=== PATIENT | female | born 1970 | race Caucasian/White ===

== ENCOUNTER → 2018-01-29 | Outpatient (CLI) | payer BC ==
[~2018-01-29] MED LIST: ACYCLOVIR 400400 MG PO; AMITRIPTYLINE H10 M3 PO; BACLOFEN 10MG T10 MG PO; CARISOPRODOL 3350 MG PO; CENTRUM SILVER1 EAC4 PO; COSENTYX (150 MG/1 M IM; FLONASE 0.05%50 MCG NASAL; LYRICA150 MG PO; MOBIC15 MG PO; OMEPRAZOLE20 M2 PO; PROMETRIUM100 MG PO; SPIRONOLACTONE100 M1 PO; STELARA45 MG/0.5 SUBQ; VITAMIN D3400 UNIT PO; ZANAFLEX2 M1 PO; ZYRTEC-D TABLE1 EAC1 PO
--- NOTE | 2018-02-05 15:18 | PAINCON ---
[address] [address] PAIN MANAGEMENT CONSULTATION Name: SU GARSIA Room: [facility] DeshpandeRadha#: [id number] Admission: 01/29/18 Attend Phys: Evie Zaragoza MD Discharge: Date of : 72 Report #: [id number] THIS REPORT FOR: //name// CC: Shane Zaragoza DATE OF SERVICE: 01/29/2018 CHIEF COMPLAINT: Sharp pain in the mid back area. HISTORY OF PRESENT ILLNESS: The patient is a 47-year-old female who has been referred to the pain clinic for evaluation of back pain. States that she started to note problems in her back in 05/2017. She exercises. She was working out in the gym. Noticed some pain and discomfort in her back, which over a period of time had continued to escalate. Denies any trauma. At this juncture, she notes that the pain continues to limit her activity. She has been told that she had some degenerative disk disease in her back. Rates her pain as 2/10 at this juncture. Has used a Medrol Dosepaks without long-term benefit. Has tried muscle relaxants. Continues to try to exercise as much as tolerated. Finds that ibuprofen and Lyrica are helpful. Has been using Soma at bedtime to help with muscle spasms and help her sleep. She feels that her work station is not helping with her pain. Has a history of cervical radicular pain and is status post cervical fusion. This in conjunction with the back pain makes her job more problematic. She feels that a standing station at work would be quite beneficial and enable her to decrease some of the pain and discomfort she is experiencing. ALLERGIES: SULFA. CURRENT MEDICATIONS: Acyclovir one tablet b.i.d., Soma 350 mg at bedtime, Zyrtec one tablet, vitamin D3 400 units, Flonase 0.05 nasal spray, multivitamins, Centrum, omeprazole 20 mg, Lyrica 150 mg t.i.d., progesterone 100 mg, Cosentyx 2 syringes intramuscular every 4 weeks, and spironolactone. PAST MEDICAL HISTORY: Rheumatic fever, anemia, hypertension, depression, migraine headaches and gastroesophageal reflux. PAST SURGICAL HISTORY: C6/C5 fusion in 2010. 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 REVIEW OF SYSTEMS: Twelve-point indicates recent weight change, chronic sinus problems, muscle cramps, back pain, nervousness, depression, slow to heal. LABORATORY DATA: MRI of the thoracic spine dated 01/20/2018: Levels, 1. T6/T7, right paracentral body osteophyte and protruded disk with effacement, [place] [address] PAIN MANAGEMENT CONSULTATION Name: SU GARSIA Room: [facility]#: [id number] Admission: 01/29/18 Attend Phys: Evie Zaragoza MD Discharge: Date of : 72 Report #: [id number] anterior thecal sac. Neural foramen are intact. Although, the protruded disk does not touch the cord, the cord appears somewhat flattened on the right at this level. 2. T7/T8 minimal bulging annulus. Neural foramen are intact cord intact. 3. T8/T9 demonstrates tiny right paracentral disk protrusion with minimal effacement of thecal sac, although the protruded disk does not touch the cord. The cord appears slightly flattened on the right. Neural foramen are intact. 4. T9/T10 demonstrates mild bulging annulus and tiny protruded disk, left of midline. Mild encroachment thecal sac noted. Minimal if any neural foraminal encroachment seen. IMPRESSION: Multilevel tiny protruded disk with effacement of the thecal sac. At these levels, there is suggestion that the cord is slightly flattened, however, no abutment of the cord noted. Alignment is unremarkable. No compression fractures seen. PAIN CLINIC ASSESSMENT: 1. History of osteoarthritis. The patient has some arthritic changes in her thoracic spine. 2. Height 5 feet 4 inches. 3. Weight 126 pounds. BMI is 21. 4. VITAL SIGNS: Blood pressure 133/83, heart rate 84, respiratory rate 16, room air saturation is 99%, and temperature 98.4. 5. Pain intensity 2/10. 6. Fall risk. The patient has not fallen in the last 3 months. 7. The patient on blood thinner. The patient is not on a blood thinning medication. 8. History of hypertension. The patient is not being treated for hypertension. 9. Opioid therapy. The patient is not on an opioid contract. 10. Risk assessment tool. 11. Functional assessment tool. The patient rates her pain impact score as a 14/70, which shows some effect of pain on activities of daily living. 12. Recreational drug use. The patient denies use of recreational drugs. 13. Tobacco: The patient is a former smoker. 14. Alcohol: The patient denies frequent use of alcoholic beverages. PHYSICAL EXAMINATION: GENERAL: The patient is a well-developed, well-nourished white female. She appears her stated age. She is alert and oriented x 3. Speech is fluent. HEENT: Normocephalic, atraumatic. Extraocular eye muscles are intact. Hearing is within normal limits. Mucous membranes are moist. NECK: Well-healed scar on the left anterior neck. Some slight decreased range of motion. Upper extremities strength is judged to be 5/5 for the major muscle groups in the upper extremity without sensory change. HEART: Regular rate. S1, S2. LUNGS: Clear to auscultation without [place] [address] PAIN MANAGEMENT CONSULTATION Name: SU GARSIA Room: [facility]#: [id number] Admission: 01/29/18 Attend Phys: Evie Zaragoza MD Discharge: Date of : 72 Report #: [id number] ABDOMEN: Nontender, without organomegaly. MUSCULOSKELETAL: Without significant scoliosis, kyphosis or lordosis. Palpation in the area approximately at her bra line of T7, T8, and T9 showed some soreness and tenderness to palpation. Lower extremity muscle strength is judged to be 5/5 for the major muscle groups. Mason's sign was negative. IMPRESSION: 1. Mid thoracic back pain and discomfort. 2. Esophageal dysphagia. 3. Gastroesophageal reflux disease with esophagitis. 4. Chronic neck pain. RECOMMENDATIONS: We discussed treatment options with the patient. At this juncture, we will try conservative approach. The patient will try amitriptyline. We will see whether or not this is helpful with the thoracic pain. Oftentimes this medication can be helpful and chronic pain such as migraines, headaches, shingles and other neuropathic conditions. We will also tell the patient tried nonsteroidal anti-inflammatory, meloxicam. She will take one of these tablets per day. If her pain persist, we will consider the possibility of injections in the affected area. The patient feels that her job ergonomics are poor. She feels that a standing desk or different type of desk could prove invaluable in improving her pain and discomfort. We have written a script for her to provide her employer. Hopefully, they will be able to give her this desk and increase her comfort level. She will follow up with the Pain Clinic in the near future. We would like to thank you for letting us participate in her care. We hope she continues to improve. <ELECTRONICALLY SIGNED> By: Evie Zaragoza MD 02/05/18 1518 1546 1944N. Macario Zaragoza MD /nt
== END ==
LOC: M.PC 03:58
DX: M51.24 Other intervertebral disc displacement, thoracic region (principal); G89.29 Other chronic pain; K21.9 Gastro-esophageal reflux disease without esophagitis; R13.14 Dysphagia, pharyngoesophageal phase; M54.2 Cervicalgia

== ENCOUNTER → 2018-02-12 | Outpatient (CLI) | payer BC ==
--- NOTE | 2018-03-11 14:16 | PAINCON ---
[address] [address] PAIN MANAGEMENT CONSULTATION Name: US GARSIA Room: [facility] Isidoro#: [id number] Admission: 02/12/18 Attend Phys: Evie Zaragoza MD Discharge: Date of : 72 Report #: [id number] THIS REPORT FOR: //name// CC: Shane Zaragoza DATE OF SERVICE: 02/12/2018 FOLLOWUP COMPLAINT: "Here for an injection and I am still trying to get a better desk at work." FOLLOWUP HISTORY: The patient is a 47-year-old female, who has been seen in the pain clinic because of chronic pain, which she is experiencing in her back. Noticed onset of her problems in about 05/2017. She does exercise. She is working at the gym. Noted some worsening of pain and discomfort in her back, which has continued. It has escalated. She denies any trauma. Denies any bowel or bladder dysfunction. Notes that the pain is exacerbated by her work environment as well. Feels that a more ergonomic work desk would be helpful. She has approached her management with a hope that this will be executed in the near future. The patient has returned today for an injection. She was given Elavil. She has had no problems with the medication. Has continued to use Meloxicam, Lyrica and Soma. Feels overall that her pain is about 30% better, but continues to have pain, which is impacting her ability to engage in activities of daily living such as walking, bending and certain other activities which worsen her pain. She has returned to the pain clinic for treatment. ALLERGIES: SULFA. CURRENT MEDICATIONS: Acyclovir 1 tablet b.i.d., Soma 350 mg at bedtime, Zyrtec one tablet, vitamin D3 400 units, Flonase 0.05 nasal spray, multivitamin, Centrum, omeprazole 20 mg, Lyrica 150 mg t.i.d., progesterone 100 mg, Cosentyx 2 syringes intramuscular every 4 weeks, spironolactone. PAIN CLINIC ASSESSMENT: 1. History of osteoarthritis. The patient has some arthritic changes in her thoracic spine. 2. Height 5 feet 4 inches, weight 127 pounds, BMI is 21.8. 3. Vital Signs: Blood pressure 114/67, heart rate 84, respiratory rate 16, room air saturation 97%, temperature 98.2. 4. Pain score 3/10. 5. Fall risk. The patient has not fallen in the last 3 months. 6. Blood thinner. The patient is not on a blood thinning medication. 7. History of hypertension. The patient has not been treated for hypertension. 8. Opioid therapy. The patient is not an opioid user. 9. Risk assessment tool. 10. Functional [place] [address] PAIN MANAGEMENT CONSULTATION Name: SU GARSIA Room: [facility]#: [id number] Admission: 02/12/18 Attend Phys: Evie Zaragoza MD Discharge: Date of : 71 Report #: [id number] 11. Recreational drug use. The patient denies use of recreational drugs. 12. Tobacco: The patient is a former smoker. 13. Alcohol: The patient denies frequent use of alcoholic beverages. PHYSICAL EXAMINATION: GENERAL: The patient is a well-developed white female, appears her stated age. She is alert and oriented x 3. She has fluent speech. HEENT: Normocephalic, atraumatic. Extraocular eye muscles intact. Hearing within normal limits. Mucous membranes are moist. NECK: Well-healed scar on the left anterior neck. Slight decreased range of motion. Upper extremity strength is judged to be 5/5 for the major muscle groups in the upper extremities without sensory change. HEART: Rate, S1, S2. LUNGS: Clear to auscultation without rales or rhonchi. ABDOMEN: Nontender, without organomegaly. MUSCULOSKELETAL: Without significant scoliosis, kyphosis or lordosis. Palpation of the area proximal to her bra at approximately T7/T8 and T9 shows some areas of soreness in the midline area as well as in the paraspinous muscle area. Lower extremity muscle strength is within normal limits and judged to be 5/5 without sensory changes. IMPRESSION: 1. Mid thoracic pain and discomfort. 2. Esophageal dysphagia. 3. Gastroesophageal reflux history with esophagitis. 4. Chronic neck pain. RECOMMENDATIONS: We will proceed today with a trigger injection in the area of the T8/T7 interspace. This area palpation in the midline area as well as the paraspinous muscle area reproduces her pain and discomfort. We discussed possible complication of the procedure, which could include infection, worsening of pain, numbness, pneumothorax. The patient elects to proceed. PROCEDURE NOTE: The patient was placed in the sitting position. She was perpendicular to the bed in the examination room. A chair was placed under her feet. She was leaning forward as though she was going to tie her shoes. Her back was sterilely prepped. The trigger point was identified. The area was sterilely prepped with a chlorhexidine solution and allowed to dry. A 25-gauge needle was then advanced into the area of the T7-T8 area. The patient states that did reproduce her pain and discomfort. A total of 8 mL of 0.5% bupivacaine and 60 mg Depo-Medrol was injected. The patient tolerated the procedure well. There were no complications. She remained in the pain clinic for an appropriate amount of time. She will follow up in the future as needed. We would like to thank you for letting us participate in her care. [place] [address] PAIN MANAGEMENT CONSULTATION Name: GARSIASU Room: [facility]#: [id number] Admission: 02/12/18 Attend Phys: Evie Zaragoza MD Discharge: Date of : 72 Report #: [id number] improve. Hopefully, the patient can get an ergonomic work station to help keep her pain under control. <ELECTRONICALLY SIGNED> By: Evie Zaragoza MD 03/11/18 1416 1025 1941N. Macario Zargaoza MD /cristiano
== END | disposition home or self-care (01) ==
LOC: M.PC 03:52
DX: M79.1 Myalgia (principal); M54.6 Pain in thoracic spine; R13.14 Dysphagia, pharyngoesophageal phase; M54.2 Cervicalgia; G89.29 Other chronic pain; Z88.2 Allergy status to sulfonamides; Z79.899 Other long term (current) drug therapy; Z87.891 Personal history of nicotine dependence; Z98.890 Other specified postprocedural states

== ENCOUNTER → 2018-03-17 | Outpatient (CLI) | payer BC ==
--- NOTE | 2018-04-08 16:41 | PAINCON ---
[address] [address] PAIN MANAGEMENT CONSULTATION Name: SU GARSIA Room: [facility] DeshpandeRadha#: [id number] Admission: 03/17/18 Attend Phys: Evie Zaargoza MD Discharge: Date of : 72 Report #: [id number] THIS REPORT FOR: //name// CC: Shane Zaragoza DATE OF SERVICE: 03/17/2018 FOLLOWUP COMPLAINT: Upper shoulder pain and improved mid back pain. HISTORY OF PRESENT ILLNESS: The patient is a 48-year-old female who has been seen in the pain clinic because of pain in her back, which has been problematic since 05/2017. She continues to exercise. She works out at the gym. Notes that the back pain has improved after a trigger point injection in her back. She is now having pain and discomfort, which is more problematic in the upper shoulder area as well as mid back pain. She has noticed that Meloxicam is helpful. She did take Elavil. Taking this at bedtime left her somewhat groggy from its side effects. Still takes Lyrica with some notes of grogginess. Has continued to take the muscle relaxant, Soma at bedtime. After a recent vacation which involves quite a bit of activity, she notes some upper shoulder pain. She has been experiencing some discomfort when tingling down into the side of her arm. Notes that the pain is worse with activity, walking and bending. Notes that the pain improves with use of cold, rest and her current medications. At this juncture, she would like to undergo treatment for the shoulder area, which showed signs of cervical radicular irritation. She has had cervical disk surgery about 7 years ago. ALLERGIES: SULFA. CURRENT MEDICATIONS: Acyclovir one tablet b.i.d., Soma 350 mg b.i.d., Zyrtec one tablet, vitamin D3 400 units, Flonase 0.05 nasal spray, multivitamin, Centrum, omeprazole 20 mg, Lyrica 150 mg t.i.d., progesterone 100 mg, Cosentyx 2 syringes intramuscular every week, spironolactone. PAIN CLINIC ASSESSMENT: 1. History of osteoarthritis. The patient has arthritic changes in her thoracic spine. 2. Height 5 feet 4 inches, weight 128 pounds, BMI is 22. 3. Vital signs: Blood pressure 116/70, heart rate 73, respiratory rate 18, room air saturation 100%, temperature 98.1. 4. Pain score 6/10 with pain radiating down into the left shoulder with numbness and tingling in the C6-C7 dermatomal distribution. 5. Fall risk. The patient has not fallen in the last 3 months. 6. Blood thinner. The patient is not on a blood thinning medication. 7. Hypertension. The patient is not being treated for hypertension. 8. Opioid therapy. The patient is [place] [address] PAIN MANAGEMENT CONSULTATION Name: SU GARSIA [facility] [id number] Admission: 03/17/18 Attend Phys: Evie Zaragoza MD Discharge: Date of : 72 Report #: [id number] 9. Risk assessment tool, low for opioid use. 10. Functional assessment tool. 11. Recreational drug use. The patient denies use of recreational drugs. 12. Tobacco: The patient is a former smoker. 13. Alcohol: The patient denies use of alcoholic beverages. PHYSICAL EXAMINATION: GENERAL: The patient is a well-developed, well-nourished white female. Appears her stated age. She is alert and oriented x 3. Her speech is fluent. HEENT: Normocephalic, atraumatic. Extraocular eye muscles intact. Hearing is within normal limits. Mucous membranes are moist. NECK: Well-healed scar on the left anterior portion of her neck. Slight decreased range of motion. Upper extremity strength is judged to be 5/5 for the major muscle groups. The patient is experiencing pain, which is radiating down in the C5-C6/C6-C7 distribution of her left arm. HEART: Regular rate. S1, S2. LUNGS: Clear to auscultation without rhonchi or rales. ABDOMEN: Nontender. Lower back area, tenderness in the T7/T8 areas as well as in the lumbar area of her back. MUSCULOSKELETAL: Without significant scoliosis, kyphosis or lordosis. Palpation in the area of the bra at about T7-T8/T9 does reproduce some soreness there. Lower extremity muscle strength is judged to be 5/5 without sensory changes. IMPRESSION: 1. History of cervical radiculopathy with pain radiating down into the left arm with numbness, tingling and weakness. 2. Mid thoracic pain and discomfort. 3. Esophageal dysphagia. 4. Gastroesophageal reflux, history of esophagitis. 5. Chronic neck pain. RECOMMENDATIONS: We discussed treatment options with the patient. At this juncture, she is having pain and discomfort, which is radiating down into the right arm on to the left arm. This area is consistent with cervical radiculopathy. At this point, we will consider a cervical epidural steroid injection. The patient also has pain and discomfort in the T7-T8 area. Feels like this has improved somewhat. If the patient does not choose to go to have cervical radicular epidural, we will then proceed with a trigger point injection to the mid thoracic area. Risks and benefits of the procedures were discussed. The patient will return after she has been given precertification by her insurance company at which time she will then [place] [address] PAIN MANAGEMENT CONSULTATION Name: SU GARSIA [facility] [id number] Admission: 03/17/18 Attend Phys: Evie Zaragoza MD Discharge: Date of : 72 Report #: [id number] steroid injection or a trigger point injection to the mid thoracic area whichever pain and symptoms are most prevalent at that time. <ELECTRONICALLY SIGNED> By: Evie Zaragoza MD 04/08/18 1641 1328 1905N. Macario Zaragoza MD /nt
== END ==
LOC: M.PC 04:56
DX: M54.12 Radiculopathy, cervical region (principal); M54.6 Pain in thoracic spine; M25.512 Pain in left shoulder; K21.9 Gastro-esophageal reflux disease without esophagitis; G89.29 Other chronic pain; R13.10 Dysphagia, unspecified

== ENCOUNTER → 2018-03-31 | Outpatient (CLI) | payer BC ==
--- NOTE | 2018-04-08 16:41 | PAINCON ---
[address] [address] PAIN MANAGEMENT CONSULTATION Name: SU GARSIA Room: [facility] ResendezMaria D#: [id number] Admission: 03/31/18 Attend Phys: Evie Zaragoza MD Discharge: Date of : 71 Report #: [id number] THIS REPORT FOR: //name// CC: Shane Zaragzoa DATE OF SERVICE: 03/31/2018 CHIEF COMPLAINT: Pain in the left shoulder, left neck and down into the left arm. FOLLOWUP HISTORY: The patient is a 48-year-old female who has been seen in the pain clinic because of cervical radiculopathy. As you may recall, she has had surgery in the past. She has noted some worsening of pain and discomfort involving her left arm. The pain is radiating down into the posterior portion of her arm and down into her 2 fingers, ring finger as well as the pinky finger. She has returned today for a cervical epidural steroid injection. She has returned. Her insurance company has precertified her for this procedure. ALLERGIES: SULFA. MEDICATIONS: Acyclovir one tablet b.i.d., Soma 350 mg at bedtime, Zyrtec 1 tablet, vitamin D3 400 units, Flonase 0.05 nasal spray, multivitamin, Centrum, omeprazole 20 mg, Lyrica 150 mg t.i.d., progesterone 100 mg, Cosentyx 2 syringes intramuscular every 4 weeks, spironolactone. PAIN CLINIC ASSESSMENT: 1. History of osteoarthritis.: The patient has arthritic changes in her neck. Does have a cervical fusion. 2. Height 5 feet 4 inches, weight 127 pounds, BMI is 21.9. 3. Vital signs: Blood pressure 114/68, heart rate 69, respiratory rate 16, room air saturation 100%, temperature 98.2. 3. Pain intensity score 6/10. 4. Fall risk. The patient has not fallen in the last 3 months. 5. Blood thinner. The patient is not on a blood thinning medication. 6. History of hypertension. The patient has been not being treated for hypertension. 7. Opioid therapy greater than 6 weeks. The patient is not on an opioid risk medication on a regular basis. 8. Risk assessment tool. 9. Functional assessment tool. 10. Recreational drug use. The patient denies use of recreational drugs. 11. Tobacco: The patient denies use of tobacco. 12. Alcohol. The [place] [address] PAIN MANAGEMENT CONSULTATION Name: [facility] Room: [facility]#: [id number] Admission: 03/31/18 Attend Phys: Evie Zaragoza MD Discharge: Date of : 71 Report #: [id number] PHYSICAL EXAMINATION: GENERAL: The patient is a well-developed, well-nourished white female. Appears her stated age. She is alert and oriented x 3. Her speech is fluent. HEENT: Normocephalic, atraumatic. Extraocular eye muscles intact. Hearing is within normal limits. Mucous membranes moist. NECK: Without adenopathy. Well-healed scar in the anterior portion of her neck. Slightly decreased range of motion secondary to previous surgery. Muscle straight judged to be 5/5 for the major muscle groups in the upper extremity with some sensory changes on the left involving the ring finger and pinky finger. HEART: S1, S2. LUNGS: Clear to auscultation without rhonchi or rales. ABDOMEN: Nontender, without organomegaly. MUSCULOSKELETAL: Without significant scoliosis, kyphosis or lordosis. The patient has pain and discomfort with numbness and weakness along the C7-C6 distribution of her left hand. IMPRESSION: 1. Cervical radicular pain. 2. History of thoracic pain. 3. Esophageal dysphagia. 4. Gastroesophageal reflux history with esophagitis. 5. Chronic back pain. RECOMMENDATIONS: We discussed treatment options with the patient. Risks and benefits of a cervical epidural steroid injection were again reviewed. Possible complication of the procedure, which could include infection, increased muscle soreness, worsening of her pain, no improvement in pain, muscle weakness and paralysis were discussed. The patient elects to proceed. PROCEDURE NOTE: The patient was taken to the procedure area. She was assisted in getting on the table. A pillow was placed under her shoulders to bolster and improve positioning. Fluoroscopy used anterior, posterior as well as lateral viewing were instituted. Her neck was sterilely prepped with a Betadine solution. At the C7-T1 interspace, a 0.25% bupivacaine was infiltrated. A 17-gauge Tuohy using a left spinous approach was used. Total of 120 mg triamcinolone was injected. The patient tolerated the procedure well. There were no complications. She remained in the pain clinic for an appropriate amount of time. Total of 12 seconds fluoroscopy time was used. We would like to thank you for letting us participate in her care. We hope she continues to improve. <ELECTRONICALLY SIGNED> By: Evie Zaragoza MD 04/08/18 1641 1617 [id number]. Macario Zaragoza MD /nt
== END | disposition home or self-care (01) ==
LOC: M.PC 04:50
DX: M54.12 Radiculopathy, cervical region (principal); K21.0 Gastro-esophageal reflux disease with esophagitis; G89.29 Other chronic pain; Z79.899 Other long term (current) drug therapy; I10 Essential (primary) hypertension; Z88.2 Allergy status to sulfonamides

== ENCOUNTER → 2018-05-05 | Outpatient (CLI) | payer BC ==
--- NOTE | 2018-05-25 10:00 | PAINCON ---
[address] [address] PAIN MANAGEMENT CONSULTATION Name: SU GARSIA Room: [facility] BRADY ResendezMaria D#: [id number] Admission: 05/05/18 Attend Phys: Evie Zaragoza MD Discharge: Date of : 72 Report #: [id number] THIS REPORT FOR: //name// CC: Shane Zaragoza DATE OF SERVICE: 05/05/2018 FOLLOWUP COMPLAINT: Pain was helped quite a bit for 2 weeks. Now of note, some return of the pain. FOLLOWUP HISTORY: The patient is a 48-year-old female, who has been seen in the pain clinic. She has a history of cervical radiculopathy. She has had surgical fusion. She returns today indicating that she has continued to have some pain and discomfort, which has returned. It involves her left hand. She has pain that radiates down the posterior portion of her elbow. Note some increased pain on the right side as well. She has had pain in the shoulder area. She continues to undergo massage therapy. She finds that this is helpful. She would like to proceed with another cervical epidural steroid injection. She had no complication from the last treatment. ALLERGIES: SULFA. MEDICATIONS: Acyclovir 1 tablet b.i.d., Soma 350 mg at bedtime, Zyrtec 1 tablet, vitamin D3 400 units, Flonase 0.05 nasal spray, multivitamin, Centrum, omeprazole 20 mg, Lyrica 150 mg t.i.d., progesterone 100 mg, Cosentyx 2 syringes intramuscularly q. 4 weeks and spironolactone. PAIN CLINIC ASSESSMENT: 1. History of osteoarthritis. The patient is not be treated for osteoarthritis, but has fusion of her neck. 2. Height 5 feet 4 inches, weight 124 pounds, BMI is 20. 3. Vital Signs: Blood pressure 132/78, heart rate 75, respiratory rate 16, room air saturation is 99, temperature 98.4. 4. Pain score 9/10. 5. Fall risk. The patient has not fallen in the last 3 months. 6. Blood thinner. The patient is not on a blood thinning medication. 7. Hypertension. The patient is not being treated for hypertension. 8. Opioid therapy greater than 6 weeks. The patient is not on a regular basis using opioids. 9. Risk assessment tool, low for use of opioid medication. 10. Functional assessment tool. 11. Recreational drug use. The patient denies use of recreational drugs. 12. Tobacco: The patient denies use of tobacco. 13. Alcohol: The patient denies [place] [address] PAIN [facility]NAGEMENT [facility] Room: [facility] DARVIN Isidoro#: [id number] Admission: 05/05/18 Attend Phys: Evie Zaragoza MD Discharge: Date of : 72 Report #: [id number] PHYSICAL EXAMINATION: GENERAL: The patient is a well-developed, well-nourished white female. Appears her stated age. She is alert and oriented x 3. Her affect is appropriate. Speech is fluent. HEENT: Normocephalic, atraumatic. Extraocular eye muscles intact. Hearing is within normal limits. Mucous membranes are moist. NECK: Without adenopathy. Well-healed scar in the anterior portion of her neck. Some decreased range of motion. The patient has some pain and discomfort radiating down the left arm. Note some pain in the area of triceps. She has some pain and discomfort involving her ring finger and pinky finger. HEART: Regular rate. S1, S2. LUNGS: Clear to auscultation without rhonchi or rales. ABDOMEN: Nontender without organomegaly. MUSCULOSKELETAL: Without scars scoliosis, kyphosis or lordosis. The patient has pain and discomfort and weakness along the C6-C7 distribution of her left hand. IMPRESSION: 1. Cervical radiculopathy. 2. History of thoracic pain. 3. Esophageal dysphagia. 4. Gastroesophageal reflux with esophagitis. 5. Chronic back pain. RECOMMENDATIO: We discussed treatment options with the patient. At this juncture, she had clean benefit from the epidural injection about a month ago . At this point, she has noticed some increasing in pain and discomfort and would like to proceed with another injection. She had no complication from the procedure. Overall, she thinks that things are going somewhat better. They have given her a better ergonomic setup at work. She is able to stand or sit during the course of day. PROCEDURE NOTE: We discussed the risks and benefits, which could include but are not limited to infection, bleeding, increased pain, no improvement in pain, worsening of pain, nerve damage, and spinal headache. The patient elects to proceed. PROCEDURE NOTE: The patient was placed in the prone position. Fluoroscopy was used to identify the C7-T1 interspace. A 17-gauge Tuohy using a left para median approach was used. This area had been infiltrated with 0.25% bupivacaine. A total of 120 mg triamcinolone was injected. The patient tolerated the procedure well. There were no complications. A total of 7 seconds fluoroscopy time was used. The patient remained in the pain clinic for an appropriate amount of time. She will follow up in the future as needed. [address] [address] PAIN MANAGEMENT CONSULTATION Name: GARSIACARMENSU Room: [facility] BRADY Resendez.#: [id number] Admission: 05/05/18 Attend Phys: Evie Zaragoza MD Discharge: Date of : 72 Report #: [id number] would like to thank you for letting us participate in her care. We hope she continues to improve. <ELECTRONICALLY SIGNED> By: Evie Zaragoza MD 05/25/18 1000 [id number]. Macario Zaragoza MD /nt
== END ==
LOC: M.PC 04:53
DX: M54.12 Radiculopathy, cervical region (principal); R13.14 Dysphagia, pharyngoesophageal phase; M54.5 Low back pain; K21.0 Gastro-esophageal reflux disease with esophagitis; G89.29 Other chronic pain

== ENCOUNTER → 2018-06-09 | Outpatient (CLI) | payer BC ==
--- NOTE | 2018-06-24 16:20 | PAINCON ---
[address] [address] PAIN MANAGEMENT CONSULTATION Name: SU GARSIA Room: [facility] BR[facility] DeshpandeRadha#: [id number] Admission: 06/09/18 Attend Phys: Evie Zaragoza MD Discharge: Date of : 72 Report #: [id number] THIS REPORT FOR: //name// CC: Shane Zaragoza FOLLOWUP HISTORY: The pain has improved after the last cervical epidural injection, but I am still having some pain in my mid back. HISTORY: The patient is a 48-year-old female who has been followed in the pain clinic because of pain involving her back as well as cervical radicular pain. The patient has undergone surgical fusion. Did note some increased pain and discomfort in the upper extremities. She underwent an epidural steroid injection at the last visit. She has noted an improvement in her pain. She continues to have some discomfort at this juncture in the mid back area. Notes that her change in work station improved things. She does not have to sit for such a long time. She is able to stand and move around. She continues to walk for exercise. Notes that after some walking she can get increased back pain and spasms. She is not sure how helpful the tizanidine was. She did note that she was sleepy after taking the medication. She uses Soma in the past. I am not sure how helpful that medication was, but it did cause some relaxation. She only took it at night. She feels that the Lyrica medication has been helpful. She did take it 3 times or has a prescription to start taking it 3 times a day. She is awaiting the arrival of the medication. ALLERGIES: SULFA. MEDICATIONS: Acyclovir one tablet b.i.d., Soma was used in the past, not being used at this juncture, Zyrtec 1 mg tablet, vitamin D3 400 units, Flonase 0.05 nasal spray, multivitamin, Centrum, omeprazole 20 mg, Lyrica 150 mg t.i.d., progesterone 100 mg, Cosentyx 2 syringes intramuscular every 4 weeks, spironolactone. PAIN CLINIC ASSESSMENT: 1. History of osteoarthritis. The patient is not being treated for osteoarthritis, but has had a fusion in her neck. She has not been treated for rheumatoid arthritis. 2. Height 5 feet 4 inches, weight 125 pounds, BMI is 21. 3. Vital Signs: Blood pressure 120/82, heart rate 68, respiratory rate 18, room air saturation 100, temperature is 97.8. Pain score 6/10. 4. Fall risk. The patient has not fallen in the last 3 months. 5. Blood thinner. The patient is not on her blood thinning medication. 6. Hypertension. The patient has not been treated for hypertension. 7. Opiate therapy greater than 6 weeks. The patient is not on her opioid medication regimen. 8. Risk assessment tool: Low for [place] [address] PAIN MANAGEMENT CONSULTATION Name: SU GARSIA Room: [facility] Chaudhry#: [id number] Admission: 06/09/18 Attend Phys: Evie Zaragoza MD Discharge: Date of : 72 Report #: [id number] 9. Functional assessment tool. 10. Recreational drug use. The patient denies use of recreational drugs. 11. Tobacco: The patient denies use of tobacco. 12. Alcohol: The patient denies use of alcoholic beverages. PHYSICAL EXAMINATION: GENERAL: The patient is a well-developed, well-nourished white female. Appears her stated age. She is alert and oriented x 3. Her affect is appropriate. Speech is fluent. HEENT: Normocephalic, atraumatic. Extraocular muscles intact. Hearing is within normal limits. NECK: Without adenopathy. She has a well-healed anterior scar. Decreased range of motion secondary to cervical fusion. HEART: Regular rate. S1, S2. LUNGS: Clear to auscultation without rhonchi or rales. ABDOMEN: Nontender, without organomegaly. EXTREMITIES: Less pain radiating down to the arms less discomfort in the ring finger and pinky finger on the left side. MUSCULOSKELETAL: Without sclerosis, kyphosis or lordosis. The patient has some weakness along the C6-C7 distribution involving her left hand. IMPRESSION: 1. History of cervical radiculopathy with fusion. 2. History of thoracic pain, mid back. 3. Esophageal dysphagia. 4. Gastroesophageal reflux with history of esophagitis. 5. Chronic back pain, myofascial mid back. RECOMMENDATIONS: We discussed treatment options with the patient. At this juncture, she will continue with the Lyrica. It was felt that this medication has been helpful. Has recently had an increase to a total of 450 mg daily. She feels that the benefits have improved from her improved economic work station. She is able to stand for longer periods of time. If her pain starts to become problematic. She is able to move around and has less pain and discomfort from sitting. Notes that overall things have improved. Still has some pain and discomfort at approximately the T7-T8 area below her bra line with soreness in this area. This improved with trigger point injection in the past. At this juncture, she will continue with a conservative approach. The option of a trigger point in the future still remains open. She will call us if she has any concerns. A script for her medications of Mobic 15 mg daily, Lyrica 150 mg t.i.d. and we will try baclofen to note its efficacy in [place] [address] PAIN MANAGEMENT CONSULTATION Name: SU GARSIA Room: [facility]#: [id number] Admission: 06/09/18 Attend Phys: Evie Zaragoza MD Discharge: Date of : 72 Report #: [id number] discomfort. We would like to thank you for letting us participate in her care. We hope she continues to improve. <ELECTRONICALLY SIGNED> By: Evie Zaragoza MD 06/24/18 1620 [id number]. Macario Zaragoza MD /[facility]
== END ==
LOC: M.PC 04:55
DX: M54.12 Radiculopathy, cervical region (principal); M43.22 Fusion of spine, cervical region; M54.6 Pain in thoracic spine; G89.29 Other chronic pain; M79.18 Myalgia, other site; K21.0 Gastro-esophageal reflux disease with esophagitis; R13.14 Dysphagia, pharyngoesophageal phase

== ENCOUNTER → 2018-07-30 | Outpatient (CLI) | payer BC ==
[~2018-07-30] MED LIST changes: +FLEXERIL PO; +LORZONE375 MG PO
--- NOTE | ~2018-07-30 | PAINCON ---
[address] [address] PAIN MANAGEMENT CONSULTATION Name: SU GARSIA Room: [facility] BRADY DeshpandeRadha#: [id number] Admission: 07/30/18 Attend Phys: Evie Zaragoza MD Discharge: Date of : 72 Report #: [id number] THIS REPORT FOR: //name// CC: Shane Zaragoza DATE OF SERVICE: 07/30/2018 CHIEF COMPLAINT: Pain in the low back area. "I am having some problems walking and exercise because of the pain." HISTORY: The patient is a 48-year-old female who has been followed in the pain clinic because of chronic pain. She has some pain in her back as well as cervical radicular pain. She has undergone cervical epidural steroid injections. Pain she has experienced today is in the low back area on her right side. Denies any trauma. She has noted some frequent spasms in the mid back area, low back area and recently noticed a flare up in this area. Continues to use Lyrica. She is no longer using baclofen did not feel that medication was very helpful, tizanidine was not very helpful at this juncture. Flexeril caused some increased drowsiness. Feels that Mobic still is beneficial and continues with that medication. Notes the pain is worse with activity, walking, bending, standing and doing work. Notes that the pain improves with cold compresses as well as with rest. Today, the pain is problematic enough that she would like to undergo a trigger point injection to help with some muscle pain. She has had similar injections in the past with no complications. ALLERGIES: SULFA. CURRENT MEDICATIONS: Acyclovir one tablet b.i.d., Soma has been used in the past. Zyrtec 1 mg, vitamin D3 400 units, Flonase 0.05% nasal spray, multivitamin, Centrum, omeprazole 20 mg, Lyrica 150 mg t.i.d., progesterone 100 mg, Cosentyx 2 syringes intramuscularly every 4 weeks. Spironolactone. PAIN CLINIC ASSESSMENT/PQRS: 1. History of osteoarthritis. The patient is not being treated for osteoarthritis. She has had a fusion in her neck. She is not being treated for rheumatoid arthritis. 2. Height 5 feet 4 inches, weight 124 pounds, BMI is 21. 3. Vital Signs: Blood pressure 114/56, heart rate 89, respiratory rate 16, room air saturation is 99%, and temperature 98.2. 4. Pain score 5/10. 5. Fall risk. The patient has not fallen in the last 3 months. 6. Blood thinner. The patient is not on a blood thinning medication. 7. Hypertension. The patient is not being treated for hypertension. 8. Risk assessment tool, low for opioid use. 9. [place] [address] PAIN MANAGEMENT CONSULTATION Name: SU GARSIA Room: [facility] BRADY Chaudhry#: [id number] Admission: 07/30/18 Attend Phys: Evie Zaragoza MD Discharge: Date of : 72 Report #: [id number] 10. Recreational drug use. The patient denies use of recreational drugs. 11. Tobacco: The patient denies use of tobacco. 12. Alcohol: The patient denies use of alcoholic beverages. PHYSICAL EXAMINATION: GENERAL: The patient is a well-developed, well-nourished white female. Appears her stated age. She is alert and oriented x 3. Her affect is appropriate. Speech is fluent. HEENT: Normocephalic, atraumatic. Extraocular eye muscles intact. Sclerae without icterus. NECK: Without significant radicular pain at this juncture. She has a well-healed anterior scar on her neck. Decreased range of motion somewhat in the cervical area secondary to fusion. HEART: Regular rate. S1, S2. LUNGS: Clear to auscultation without rhonchi or rales. ABDOMEN: Nontender. Bowel sounds present. The patient is without organomegaly. EXTREMITIES: Lower extremity muscle strength is judged to be 5/5 for the major muscle groups in the upper extremity. Muscle strength in the upper extremities, judged to be 5-/5 for the major muscle groups in the upper extremity. MUSCULOSKELETAL: Without significant scoliosis, kyphosis or lordosis. The patient has pain and discomfort in the low back area near the right T11/T12 paraspinous area. Palpation in this area does reproduce the patient's discomfort. IMPRESSION: 1. History of cervical radiculopathy with fusion. 2. History of thoracic pain, mid back. The patient is having pain in the right T11/T12 area myofascial in nature. 3. Esophageal dysphagia. 4. Gastroesophageal reflux with history of esophagitis. 5. Chronic back pain. RECOMMENDATIONS: We discussed treatment options with the patient. At this juncture, she has pain and discomfort which is located in the right paraspinous muscle area near T12-L1. Palpation in this area does reproduce her discomfort. A palpation of the area reproduced trigger point. The area was then sterilely prepped with a chlorhexidine solution and allowed to dry. A 0.25% bupivacaine using a 25-gauge needle was used to advance into the area. PROCEDURE NOTE: Aspiration was negative. There was no air. Total of 40 mg of triamcinolone with 8 mL of 0.5% bupivacaine was placed. The patient tolerated the procedure well. This area in the latissimus dorsi did reproduce the discomfort she was experiencing. She was then taken to the recovery area where she remained for an appropriate amount of time. A script for chlorzoxazone (Lorzone) 375 mg muscle relaxant 1 p.o. t.i.d. [place]. [place] [address] PAIN MANAGEMENT [facility] BILOXIM[facility] D#: [id number] Admission: 07/30/18 Attend Phys: Evie Zaragoza MD Discharge: Date of : 72 Report #: [id number] also take Meloxicam 15 mg 1 p.o. daily. We would like to thank you for letting us participate in her care. She will call us if she has any concerns. If the patient has any development of breathing difficulties, she will go to the Emergency Room. We would like to thank you for letting us participate in her care. We hope that she will continue to improve. By: [id number]. Macario Zaragoza MD /nt
== END | disposition home or self-care (01) ==
LOC: M.PC 07-07 08:30
DX: M79.18 Myalgia, other site (principal); M19.90 Unspecified osteoarthritis, unspecified site; I10 Essential (primary) hypertension; M54.12 Radiculopathy, cervical region; M54.6 Pain in thoracic spine; R13.19 Other dysphagia; K21.0 Gastro-esophageal reflux disease with esophagitis; G89.29 Other chronic pain; Z98.890 Other specified postprocedural states; Z88.2 Allergy status to sulfonamides; Z79.899 Other long term (current) drug therapy; Z98.1 Arthrodesis status

== ENCOUNTER → 2018-09-22 | Outpatient (CLI) | payer BC ==
[~2018-09-22] MED LIST changes: +MEDROLDOSEPACK PO
--- NOTE | ~2018-09-22 | PAINCON ---
[address] [address] PAIN MANAGEMENT CONSULTATION Name: SU GARSIA Room: [facility] DeshpandeRadha#: [id number] Admission: 09/22/18 Attend Phys: Evie Zaragoza MD Discharge: Date of : 72 Report #: [id number] THIS REPORT FOR: //name// CC: Shane Zaragoza DATE OF SERVICE: 09/22/2018 CHIEF COMPLAINT: Still having pain in the middle of my back, which is the most problem. FOLLOWUP HISTORY: The patient is a 48-year-old female who has followed in the pain clinic because of chronic pain. As you recall, she does have some pain and discomfort associated with cervical radiculopathy. Cervical epidural steroid injection have been helpful. Still has some chronic pain in the upper neck and shoulder area. Has noticed worsening of pain in the mid back area at about the bra line. About 3 days ago, her pain was a 2-3. She did some activities around the house and noted a flare an increase in pain and discomfort. She notes that the cold weather has been problematic. Has used a tennis ball to stretch and massage the affected area. Feels that may have worsened it at this point. Continues to use her medications. Feels that sometimes the Lyrica makes her speech a little difficult and that she has to search for words. At this point, that is happen when she has increased the dosage. Overall, things are going well at this point. 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 She is unable to sweep, unable to vacuum because of worsening of pain. She has returned to the pain clinic for renewal of her medications and treatment. She was unable to get the prescription for Lorzone filled. She feels that the Flexeril is probably as helpful as any. She would like to have that medication renewal. Denies any problems with her GI tract, associated with use of meloxicam. ALLERGIES: SULFA. CURRENT MEDICATIONS: Acyclovir 10 mg 1 p.o. b.i.d., Soma has been used in the past, Zyrtec 1 mg, vitamin D3 400 units, Flonase 0.05% nasal spray, multivitamin, Centrum, omeprazole, Lyrica 150 mg t.i.d., progesterone 100 mg, Cosentyx 2 syringes intramuscularly every 4 weeks for autoimmune problems, spironolactone. PAIN CLINIC ASSESSMENT/PQRS: 1. History of osteoarthritis. The patient has some arthritic changes in her neck. She has had a fusion of her neck. She is being treated for autoimmune problems. 2. Height 5 feet 4 inches, weight 126 pounds, BMI is 21.7. 3. Vital signs: Blood pressure 113/73, heart rate 106, respiratory rate 16, room air saturation 98%. Temperature is 98.6. 4. Pain intensity 7/10. [place] [address] PAIN MANAGEMENT CONSULTATION Name: SU GARSIA Room: [facility] Chaudhry#: [id number] Admission: 09/22/18 Attend Phys: Evie Zaragoza MD Discharge: Date of : 72 Report #: [id number] 5. Fall history: The patient has not fallen since we saw her last. 6. Blood thinner. The patient is not on a blood thinning medication. 7. Opioid use for greater than 6 weeks. The patient is not on opioid medication on a long-term basis. 8. Risk assessment tool. 9. Functional assessment tool. 10. Recreational drug use. The patient denies use of recreational drugs. 11. Tobacco: The patient denies use of tobacco. 12. Alcohol: The patient denies use of alcoholic beverages. PHYSICAL EXAMINATION: GENERAL: The patient is a well-developed, well-nourished white female. Appears her stated age. She is alert and oriented x 3. Her affect is appropriate. Speech is fluent. HEAD, EYES, EARS, NOSE, AND THROAT: Normocephalic, atraumatic. Extraocular muscles intact. Sclerae nonicteric. Mucous membranes are moist. NECK: Without significant radicular pain at this juncture. She does have some well-healed sternal scar in the anterior portion of her neck. Some decreased range of motion cervically secondary to the fusion. HEART: Regular rate. S1, S2. LUNGS: Clear to auscultation without rhonchi or rales. Posterior back in approximately the T7-T80 area. Notes some pain and discomfort. This myofascial trigger point has been injected in the past. EXTREMITIES: Lower extremity muscle strength is judged to be 5/5 for the major muscle groups. Upper extremity muscle strength is judged to be 5-/5 for the major muscle groups in the upper extremity. The patient without significant scoliosis, kyphosis or lordosis. Pain and discomfort in the T12-T11 areas. IMPRESSION: 1. History of cervical radiculopathy with status post fusion. 2. History of thoracic pain, mid back in the T12-T11 area myofascial in nature. 3. Esophageal dysplasia. 4. Esophageal reflux with history of esophagitis. 5. Chronic back pain. Treatment with sclera autoimmune problem for autoimmune history. RECOMMENDATIONS: We discussed treatment options with the patient. At this juncture, we will provide the patient with a Medrol Dosepak. She will take 2-4 tablets a day. She will continue with her activity. She will follow up with physical therapist. She has had physical therapy in the past, but this was for cervical problems. She will go now with his desire to focus on the T11, T12 discomfort. A script for her medications have been rewritten for meloxicam 15 mg 1 p.o. daily, cyclobenzaprine 10 mg 1 p.o. t.i.d., Lyrica 270 pills with a 3-[place] [address] PAIN MANAGEMENT CONSULTATION Name: [facility] Room: [facility] Chaudhry#: [id number] Admission: 09/22/18 Attend Phys: Evie Zaragoza MD Discharge: Date of : 72 Report #: [id number] supply. We would like to thank you for letting us to participate in her care. By: [id number]. Macario Zaragoza MD /[facility]
== END ==
LOC: M.PC 08:40
DX: M54.12 Radiculopathy, cervical region (principal); G89.29 Other chronic pain; K21.0 Gastro-esophageal reflux disease with esophagitis